=== PATIENT | female | born 1945 | race Caucasian/White ===

== ENCOUNTER → 2016-12-29 | Outpatient (CLI) | payer OTHER ==
[~2016-12-29] MED LIST: ACET-1138 PEG; ALEN70TA4 PO; CALCTAB5 PO; CHOLTAB3 PO; CLL250 PO; CRAN500C2 PO; CZR50 PO; HYDR0.5T PO; METO2.5T PO; OMEG10007 PO; PRED-301 PO; PRLSR20 PO; SERT25TA PO
[2016-12-29 09:41] LABS: BASO ABS # 0.04 K/uL (0-0.2); COMPLETE YES; EOS % 1.3 %; HEMATOCRIT 35.1 % (37-47); IG% 0.3 %; LYMPH % 21.7 %; LYMPH ABS # 0.86 K/uL (1.2-3.4); MEAN CELL VOLUME 99.4 fL (80-100); MEAN CORPUSCULAR HEMOGLOBIN 32.3 pg (25-34); MEAN CORPUSCULAR HGB CONC 32.5 g/dl (32-36); MEAN PLATELET VOLUME 9.9 fL (7.4-10.4); MONO % 14.9 %; NEUT % 60.8 %; PLATELET COUNT 230 K/uL (130-400); RED BLOOD COUNT 3.53 M/uL (4.2-5.4); WHITE BLOOD COUNT 3.97 K/uL (4.8-10.8)
[2016-12-29 09:58] LABS: URINE APPEARANCE CLOUDY (CLEAR); URINE BILIRUBIN NEG (NEG); URINE COLOR YELLOW; URINE EPITHELIAL CELL AUTO 0-5 /lpf (0-5); URINE NITRITE NEG (NEG); URINE PH 5.5 (4.5-7.5); URINE SPECIFIC GRAVITY 1.017 (1.000-1.030); UROBILINOGEN NEG (NEG)
[2016-12-29 09:59] LABS: BLOOD UREA NITROGEN 29 mg/dl (7-18); BUN/CREATININE RATIO 26.7 (10-20); C-REACTIVE PROTEIN < 0.29 mg/dl (0-0.29); CALCIUM 8.7 mg/dl (8.5-10.1); CARBON DIOXIDE 25 mmol/L (21-32); CHLORIDE 103 mmol/L (98-107); CHOLESTEROL 212 mg/dl (0-200); GLUCOSE 81 mg/dl (70-99); POTASSIUM 3.6 mmol/L (3.5-5.1); SODIUM 138 mmol/L (136-145)
[2016-12-29 10:04] LABS: MANUAL MICROSCOPIC REQUIRED? NO; REVIEW REQ? NO
[2016-12-29 10:09] LABS: CHOLESTEROL/HDL RATIO 2.5; HDL CHOLESTEROL 84 mg/dl; LDL CHOLESTEROL CALCULATED 109 mg/dl; TRIGLYCERIDES 96 mg/dl (0-150); VERY LOW DENSITY LIPOPROT CALC 19 mg/dl
[2016-12-29 10:13] LABS: URINE PROTIEN/CREAT RATIO 0.3 (0-0.2); URINE TOTAL PROTEIN 39.2 mg/dl (0-11.9)
[2017-01-01 23:30] LABS: DRVVT MIX INTERPRETAION Not Indicated; LAC PTT SCREEN 32 sec (<=40)
== END | disposition home or self-care (01) ==
LOC: C.LAB1850 07:55
PROVIDERS: ATTEND Internal Medicine
DX: I10 Essential (primary) hypertension (principal)

== ENCOUNTER → 2017-07-05 | Outpatient (CLI) | payer OTHER ==
[2017-07-05 09:37] LABS: BASO % 1.1 %; BASO ABS # 0.05 K/uL (0-0.2); COMPLETE YES; EOS % 1.8 %; HEMATOCRIT 33.6 % (37-47); IG% 0.5 %; LYMPH % 24.8 %; LYMPH ABS # 1.09 K/uL (1.2-3.4); MEAN CELL VOLUME 100.3 fL (80-100); MEAN CORPUSCULAR HEMOGLOBIN 32.2 pg (25-34); MEAN CORPUSCULAR HGB CONC 32.1 g/dl (32-36); MEAN PLATELET VOLUME 9.6 fL (7.4-10.4); MONO % 13.7 %; NEUT % 58.1 %; PLATELET COUNT 242 K/uL (130-400); RED BLOOD COUNT 3.35 M/uL (4.2-5.4); WHITE BLOOD COUNT 4.39 K/uL (4.8-10.8)
[2017-07-05 09:49] LABS: ALT/SGPT 20 U/L (12-78); AST/SGOT 21 U/L (15-37); BLOOD UREA NITROGEN 27 mg/dl (7-18); BUN/CREATININE RATIO 24.4 (10-20); CALCIUM 8.8 mg/dl (8.5-10.1); CARBON DIOXIDE 28 mmol/L (21-32); CHLORIDE 103 mmol/L (98-107); GLUCOSE 81 mg/dl (70-99); HDL CHOLESTEROL 75 mg/dl; POTASSIUM 3.9 mmol/L (3.5-5.1); SODIUM 136 mmol/L (136-145)
[2017-07-05 09:51] LABS: CHOLESTEROL 219 mg/dl (0-200); CHOLESTEROL/HDL RATIO 2.9; LDL CHOLESTEROL CALCULATED 124 mg/dl; TRIGLYCERIDES 100 mg/dl (0-150); VERY LOW DENSITY LIPOPROT CALC 20 mg/dl
[2017-07-05 09:56] LABS: ESTIMATED AVERAGE GLUCOSE 120 mg/dl; HA1C FLAG Normal (Normal)
[2017-07-10 12:25] LABS: ANTI SS DNA TC 14857X <69 U/mL (<230)
== END | disposition home or self-care (01) ==
LOC: C.LAB1850 08:03
PROVIDERS: ATTEND Physician Assistant
DX: N28.9 Disorder of kidney and ureter, unspecified (principal); R73.9 Hyperglycemia, unspecified; M32.14 Glomerular disease in systemic lupus erythematosus

== ENCOUNTER → 2017-08-29 | Outpatient (CLI) | payer OTHER ==
--- NOTE | 2017-08-30 07:46 | MAMMOGRAPHY REPORT ---
BILATERAL DIGITAL SCREENING MAMMOGRAM TOMOSYNTHESIS WITH CAD: 08/29/2017 CLINICAL HISTORY: Routine screening. Patient has no complaints. TECHNIQUE: Breast tomosynthesis in addition to standard 2D mammography was performed. Current study was also evaluated with a Computer Aided Detection (CAD) system. COMPARISON: Comparison is made to exams dated: 08/24/2016 mammogram, 08/20/2015 mammogram, and 05/13/20 13 mammogram - [facility]. BREAST COMPOSITION: The tissue of both breasts is heterogeneously dense, which may obscure small mas ses. FINDINGS: There are mild vascular calcifications in the breasts. No suspicious mass, architectural d istortion or cluster of suspicious microcalcifications is seen. IMPRESSION: ACR BI-RADS CATEGORY 1: NEGATIVE There is no mammographic evidence of malignancy. A 1 year screening mammogram is recommended. The pa tient will receive written notification of the results. Approximately 10% of breast cancers are not detected with mammography. A negative mammographic report should not delay biopsy if a clinically suggestive mass is present. Akiko Smith M.D. ay/:08/29/2017 12:50:27 Polymer Chemist: Sybil MCLAUGHLIN(R)(M), [facility] letter sent: Normal 1/2 BI-RADS Code: ACR BI-RADS Category 1: Negative
== END | disposition home or self-care (01) ==
LOC: C.MAMM 09:57
PROVIDERS: ATTEND Internal Medicine
DX: Z12.31 Encounter for screening mammogram for malignant neoplasm of breast (principal)

== ENCOUNTER 2017-11-30 11:28 | Inpatient (IN) | payer OTHER ==
[~2017-11-30] VITALS: Ht 157.5 cm; Wt 50.8 kg
[2017-11-30] MEDS ORDERED: SODIUM CHLORIDE 0.9% 1000ML 2,000 ML IV STA (12:42)
[2017-11-30] MEDS ORDERED: ALBUT/IPRATROP 3MG/0.5MG NEB 3 ML VIAL INH STA (12:42)
[2017-11-30] MEDS ORDERED: ACETAMINOPHEN 500 MG TAB PO STA (12:42)
[2017-11-30] MEDS ORDERED: ONDANSETRON 4MG OD TAB PO ONE (12:45)
--- NOTE | 2017-11-30 12:47 | EMERGENCY ROOM VISIT NOTE ---
History Report prepared by Palomo: Vinicio Jimenez Under the Supervision of: Dr. Ruben Arana M.D. First contact with patient: 12:34 Chief Complaint: FLU LIKE SX Stated Complaint: FLU, DEHYDRATION History of Present Illness The patient is a 72 year old female who presents to the Emergency Room of cough. Patient with flu like illness for the last 2 weeks. Initially improving but then last few days symptoms worsening. Associated fevers, chills , cough, nausea, vomiting, and rhinorrhea. Denies COPD/asthma but has had some wheezing. No abx recently. Nothing makes better nor worse. No syncope, chest pain, headache, neck pain/stiffness, leg swelling, rashes. Seen at urgent care and sent here for evaluation. Source of History: patient Onset: 2 weeks ago Position: other (global) Timing: constant Associated Symptoms: + fevers, + cough, + nausea, + vomiting, + diarrhea Note: Pt denies rhinorrhea. Review of Systems See HPI for pertinent positives & negatives. A total of 10 systems reviewed and were otherwise negative. Past Medical & Surgical Medical Problems: (1) Asthma (2) COPD (chronic obstructive pulmonary disease) (3) Diarrhea (4) Dislocation of hip joint prosthesis (5) Hypertension Nos (6) Lupus Erythematosus (7) Right lower lobe pneumonia Surgical Problems: (1) History of cholecystectomy (2) History of hysterectomy (3) Post-operative state Family History Cancer Lung disease Social History Smoking Status: Never Smoker Alcohol Use: none Housing Status: lives alone Occupation Status: retired Current/Historical Medications Scheduled Alendronate Sodium (Fosamax), 70 MG PO WK Calcium Carbonate-Cholecalcife (Caltrate 600+D), 1 TAB PO DAILY Hydroxychloroquine Sulfate (Plaquenil), 200 MG PO BID Losartan Potassium (Cozaar), 100 MG PO DAILY Metolazone (Zaroxolyn), 2.5 MG PO DAILY Multivitamin (Multivitamin), 1 TAB PO DAILY Mycophenolate Mofetil (Mycophenolate Mofetil), 500 MG PO BID Omeprazole (Prilosec), 20 MG PO BID Prednisone (Prednisone), 5 MG PO DAILY Sertraline (Zoloft), 25 MG PO DAILY Allergies Coded Allergies: Furosemide (Verified Allergy, Unknown, 05/08/16) Sulfamethoxazole (Verified Allergy, Unknown, 05/08/16) Physical Exam Vital Signs Date Time Temp Pulse Resp B/P (MAP) Pulse Ox O2 Delivery O2 Flow Rate FiO2 11/30/17 14:18 110 20 117/65 94 11/30/17 13:12 108 20 131/73 11/30/17 13:08 111 11/30/17 11:43 38.3 80 18 117/68 97 Room Air Physical Exam GENERAL: Patient is mildly uncomfortable appearing and in no acute distress. HEENT: No acute trauma, normocephalic atraumatic, mucous membranes dry, no nasal congestion, no scleral icterus. Copious rhinorrhea with irritation of nares bilaterally. NECK: No stridor, no adenopathy, no meningismus, trachea is midline. LUNGS: No dyspnea. Clear to auscultation and equal bilaterally. Diffuse wheezing with junky cough, no rhonchi. HEART: Tachycardia and rhythm. No murmurs, rubs, gallops appreciated. ABDOMEN: Soft, nontender, bowel sounds positive, no masses appreciated, no peritonitis. BACK: No midline tenderness, no CVA tenderness EXTREMITIES: Normal motion all extremities, no cyanosis, no edema. NEUROLOGIC: Alert and oriented, no acute motor or sensory deficits, no focal weakness, cranial nerves grossly intact. SKIN: No rash, no jaundice, no diaphoresis. Medical Decision & Procedures ER Provider Diagnostic Interpretation: Radiology results and stated below per my review and radiologist interpretation: CHEST ONE VIEW PORTABLE HISTORY: cough, fever COMPARISON: Chest 05/08/2016. FINDINGS: Rotated study. Right upper lobe opacity is likely due to the overlapping ribs. Mild diffuse interstitial thickening, unchanged. Right basilar linear densities suggesting subsegmental atelectasis. The heart remains mildly enlarged. No pleural effusions. No pneumothorax. IMPRESSION: 1. Rotated study. 2. Right basilar linear densities likely represent subsegmental atelectasis. 3. Stable mild interstitial thickening and mild cardiomegaly. Electronically signed by: Keaton Payne M.D. 11/30/2017 1:20 PM Dictated Date/Time: 11/30/2017 1:19 PM Laboratory Results 11/30/17 13:00 Red Blood Count 3.08, Mean Corpuscular Volume 96.8, Mean Corpuscular Hemoglobin 32.5, Mean Corpuscular Hemoglobin Concent 33.6, Mean Platelet Volume 9.2, Neutrophils (%) (Auto) 90.6, Lymphocytes (%) (Auto) 3.9, Monocytes (%) (Auto) 4.9, Eosinophils (%) (Auto) 0.0, Basophils (%) (Auto) 0.1, Neutrophils # (Auto) 18.27, Lymphocytes # (Auto) 0.78, Monocytes # (Auto) 0.99, Eosinophils # (Auto) 0.00, Basophils # (Auto) 0.02 11/30/17 13:00 Test 11/30/17 13:00 11/30/17 13:11 11/30/17 13:25 White Blood Count 20.16 K/uL (4.8-10.8) Red Blood Count 3.08 M/uL (4.2-5.4) Hemoglobin 10.0 g/dL (12.0-16.0) Hematocrit 29.8 % (37-47) Mean Corpuscular Volume 96.8 fL (80-100) Mean Corpuscular Hemoglobin 32.5 pg (25-34) Mean Corpuscular Hemoglobin Concent 33.6 g/dl (32-36) Platelet Count 363 K/uL (130-400) Mean Platelet Volume 9.2 fL (7.4-10.4) Neutrophils (%) (Auto) 90.6 % Lymphocytes (%) (Auto) 3.9 % Monocytes (%) (Auto) 4.9 % Eosinophils (%) (Auto) 0.0 % Basophils (%) (Auto) 0.1 % Neutrophils # (Auto) 18.27 K/uL (1.4-6.5) Lymphocytes # (Auto) 0.78 K/uL (1.2-3.4) Monocytes # (Auto) 0.99 K/uL (0.11-0.59) Eosinophils # (Auto) 0.00 K/uL (0-0.5) Basophils # (Auto) 0.02 K/uL (0-0.2) RDW Standard Deviation 45.0 fL (36.4-46.3) RDW Coefficient of Variation 12.9 % (11.5-14.5) Immature Granulocyte % (Auto) 0.5 % Immature Granulocyte # (Auto) 0.10 K/uL (0.00-0.02) Anion Gap 9.0 mmol/L (3-11) Est Creatinine Clear Calc Drug Dose 23.2 ml/min Estimated GFR () 33.8 Estimated GFR (Non- 29.2 BUN/Creatinine Ratio 29.5 (10-20) Calcium Level 9.1 mg/dl (8.5-10.1) Bedside Lactic Acid Venous 1.31 mmol/L (0.90-1.70) Influenza Type A Antigen Neg for Influ A (NEG) Influenza Type B Antigen Neg for Influ B (NEG) Laboratory results as reviewed by me. Medications Administered Medications (Trade) Dose Ordered Sig/Alon Route Start Time Stop Time Status Last Admin Dose Admin Albuterol/ Ipratropium (Duoneb) 3 ml NOW STAT INH 11/30/17 12:42 11/30/17 12:46 DC 11/30/17 13:02 3 ML Sodium Chloride 2,000 ml @ 999 mls/hr Q2H1M STAT IV 11/30/17 12:42 11/30/17 14:42 DC 11/30/17 12:42 999 MLS/HR Ondansetron HCl (Zofran Odt) 4 mg ONE ONCE PO 11/30/17 12:45 11/30/17 12:46 DC 11/30/17 13:01 4 MG Acetaminophen (Tylenol Tab) 1,000 mg NOW STAT PO 11/30/17 12:42 11/30/17 12:46 DC 11/30/17 13:02 1,000 MG Sodium Chloride 1,000 ml @ 999 mls/hr Q1H1M STAT IV 11/30/17 13:37 11/30/17 14:37 DC 11/30/17 13:52 999 MLS/HR Levofloxacin (Levaquin / D5W) 750 mg NOW STAT IV 11/30/17 13:51 11/30/17 13:52 DC 11/30/17 14:17 750 MG ECG Indication: other (flu like symptoms) Rate (beats per minute): 110 Rhythm: sinus tachycardia Findings: RBBB, other (QTC of 160; PAC's) Change: EKG interpreted by me. ED Course 1234: The patient was evaluated in room A9. A complete history and physical exam was performed. 1336: I checked on the patient and she still has junky rales. The heart rate jumped to 120. 1338:I ordered an EKG 1400: The patient verbally expressed understanding and agreement of the treatment plan. The patient will be evaluated for further treatment. Medical Decision Differential: Viral, Pharyngitis, Cellulitis, Pneumonia, Influenza, Meningitis, Sepsis, Bacteremia, UTI/Pyelonephritis, Endocrine, Toxicologic, amongst other pathologies entertained. 72 yr old female with flu like illness starting 2 weeks ago, which worsening last 2 days with shob, cough fevers, sent over by urgent care for evaluation. PNA by lung exam with fever, tachycardia. Not hypotensive nor elevated lactic acid. She does appear significantly dehydrated which goes with tachycardia, elevated Cr. WBC is 20 and in setting of fevers/tachycardia and pna this is consistent with sepsis. CXR with questionable RLL findings which I suspect with dehydration is just not blossomed yet. She is not in septic shock but was given significant fluid bolus for amount of dehydration. She was given IV Levaquin for pneumonia coverage. Patient feeling better with above but I feel with findings she will need to come in for close monitoring/treatment. Medication Reconcilliation Current Medication List: was personally reviewed by me Blood Pressure Screening Patient's blood pressure: Normal blood pressure Blood pressure disposition: Did not require urgent referral Impression Primary Impression: Pneumonia Additional Impression: Sepsis Scribe Attestation The scribe's documentation has been prepared under my direction and personally reviewed by me in its entirety. I confirm that the note above accurately reflects all work, treatment, procedures, and medical decision making performed by me. Departure Information Referrals Carson Almazan M.D. (PCP) Patient Instructions [facility] Problem Qualifiers
[2017-11-30 13:16] LABS: BASO % 0.1 %; BASO ABS # 0.02 K/uL (0-0.2); HEMATOCRIT 29.8 % (37-47); LYMPH % 3.9 %; LYMPH ABS # 0.78 K/uL (1.2-3.4); MEAN CELL VOLUME 96.8 fL (80-100); MEAN CORPUSCULAR HEMOGLOBIN 32.5 pg (25-34); MEAN CORPUSCULAR HGB CONC 33.6 g/dl (32-36); MEAN PLATELET VOLUME 9.2 fL (7.4-10.4); MONO % 4.9 %; MONO ABS # 0.99 K/uL (0.11-0.59); NEUT % 90.6 %; NEUT ABS # 18.27 K/uL (1.4-6.5); PLATELET COUNT 363 K/uL (130-400); RED CELL DISTRIBUTION WIDTH CV 12.9 % (11.5-14.5); WHITE BLOOD COUNT 20.16 K/uL (4.8-10.8)
--- NOTE | 2017-11-30 13:21 | DIAGNOSTIC IMAGING REPORT ---
CHEST ONE VIEW PORTABLE HISTORY: cough, fever COMPARISON: Chest 05/08/2016. FINDINGS: Rotated study. Right upper lobe opacity is likely due to the overlapping ribs. Mild diffuse interstitial thickening, unchanged. Right basilar linear densities suggesting subsegmental atelectasis. The heart remains mildly enlarged. No pleural effusions. No pneumothorax. IMPRESSION: 1. Rotated study. 2. Right basilar linear densities likely represent subsegmental atelectasis. 3. Stable mild interstitial thickening and mild cardiomegaly. Electronically signed by: Keaton Payne M.D. 11/30/2017 1:20 PM Dictated Date/Time: 11/30/2017 1:19 PM
[2017-11-30 13:33] LABS: CALCIUM 9.1 mg/dl (8.5-10.1); CREATININE 1.71 mg/dl (0.60-1.20); POTASSIUM 3.4 mmol/L (3.5-5.1)
[2017-11-30] MEDS ORDERED: SODIUM CHLORIDE 0.9% 1000ML 1,000 ML IV STA (13:37)
[2017-11-30] MEDS ORDERED: MULT-506 PO (13:47)
[2017-11-30] MEDS ORDERED: LOSA1TAB38 PO (13:47)
[2017-11-30] MEDS ORDERED: CALC-354 PO (13:47)
[2017-11-30] MEDS ORDERED: MYCO500T5 PO (13:47)
[2017-11-30] MEDS ORDERED: HYDR200T5 PO (13:47)
[2017-11-30] MEDS ORDERED: LEVAQUIN 750MG / 150ML D5W IV STA (13:51)
[2017-11-30 14:10] LABS: INFLUENZA B ANTIGEN Neg for Influ B (NEG)
[2017-11-30] MEDS ORDERED: LEVOFLOXACIN / D5W 750 MG in PREMIXED IN D5W 150 ML IV SCH (14:45)
[2017-11-30] MEDS ORDERED: POLYETHYLENE (MIRALAX) 17 GM PACK PO PRN (14:45)
[2017-11-30] MEDS ORDERED: ONDANSETRON INJ 2 MG/ML 2 ML VIAL IV PRN (14:45)
[2017-11-30] MEDS ORDERED: DIPHENOXYLATE/ATROPINE 2.5/0.025MG TAB PO PRN (15:00)
--- NOTE | 2017-11-30 15:03 | History and Physical ---
History & Physical Date & Time of Service: Nov 30, 2017 at 14:17 Chief Complaint: Flu, Dehydration Primary Care Physician: Carson Almazan M.D. History of Present Illness A 72-year-old female with PMHx of lupus erythematosus, HTN, COPD, asthma, limited remote smoking history about 10 years ago for 2 years. She presents with generalized ill feeling of approximately 2 weeks to the ER. She reports initially feeling like she had a head cold with cough, runny nose, chest congestion, muscle aches and pains, which then developed into GI issues. She has been dealing with nausea, vomiting, and diarrhea 1 week. This morning the patient was unable to keep any fluids or medications down. She reports feeling generalized weakness, and had a fever of 38.3 here in the ER along with WBC = 20 K. The patient received a breathing treatment due to shortness of breath she feels better at this time. 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 Patient is tachycardic with a heart rate of 108, Tmax= 38.3 White blood count equal 20 K, creatinine 1.71 which is elevated from 1.1 at baseline Chest x-ray reviewed, breath sounds with faint crackles worse in the RLL along with wheezing. Past Medical/Surgical History Medical Problems: (1) Asthma (2) COPD (chronic obstructive pulmonary disease) (3) Diarrhea (4) Dislocation of hip joint prosthesis (5) Hypertension Nos (6) Lupus Erythematosus (7) Right lower lobe pneumonia Surgical Problems: (1) History of cholecystectomy (2) History of hysterectomy (3) Post-operative state Family History Cancer Lung disease Social History Smoking Status: Former Smoker Smokeless Tobacco Use: No Alcohol Use: occasionally Drug Use: none Marital Status: Housing status: lives alone Occupational Status: employed Immunizations History of Influenza Vaccine: No Influenza Vaccine Date: Sep 10, 2008 History of Tetanus Vaccine?: Yes Tetanus Immunization Date: Mar 11, 2008 History of Pneumococcal: Yes Pneumococcal Date: Mar 11, 2008 History of Hepatitis B Vaccine: Unknown Hepatitis Immunization Date: Mar 11, 2007 Multi-Drug Resistant Organisms History of MDRO: No Allergies Coded Allergies: Furosemide (Verified Allergy, Unknown, 05/08/16) Sulfamethoxazole (Verified Allergy, Unknown, 05/08/16) Home Medications Scheduled Alendronate Sodium (Fosamax), 70 MG PO WK Calcium Carbonate-Cholecalcife (Caltrate 600+D), 1 TAB PO DAILY Hydroxychloroquine Sulfate (Plaquenil), 200 MG PO BID Losartan Potassium (Cozaar), 100 MG PO DAILY Metolazone (Zaroxolyn), 2.5 MG PO DAILY Multivitamin (Multivitamin), 1 TAB PO DAILY Mycophenolate Mofetil (Mycophenolate Mofetil), 500 MG PO BID Omeprazole (Prilosec), 20 MG PO BID Prednisone (Prednisone), 5 MG PO DAILY Sertraline (Zoloft), 25 MG PO DAILY Review of Systems Constitutional: + fever, no sweats or chills Eyes: No diplopia, no worsening or blurred vision ENT: normal hearing, no trouble swallowing Respiratory: + occasional cough, no sputum, dyspnea at rest or on exertion Cardiovascular: No chest pain, tightness or palpitations Abdomen: See history of present illness Musculoskeletal: No joint pain, calf pain, swelling Neurologic: No weakness, numbness/tingling, or balance problems Psychiatric: No anxiety or depression Skin: No rash or itch Physical Exam Vital Signs Date Time Temp Pulse Resp B/P (MAP) Pulse Ox O2 Delivery O2 Flow Rate FiO2 11/30/17 13:12 108 20 131/73 11/30/17 13:08 111 11/30/17 11:43 38.3 80 18 117/68 97 Room Air General: awake, alert, no apparent distress, thin Head: Normocephalic, atraumatic ENT: PERRL, EOMI, no pharyngeal exudate, mucous membranes dry Chest: On RA, + barrel chest, + inspiratory and expiratory wheeze worse in the right base, faint crackles in the right base and RML, otherwise clear Cardiac: Tachycardic, systolic murmur, +JVD, normal peripheral pulses, good capillary refill Abdominal: NABS x 4 quadrants, soft, generalized tenderness to palpation, no rebound, guarding or tenderness Extremities: Normal inspection, no peripheral edema or erythema, calfs nontender to palpation Psych: Normal mood and affect Neuro: AAO x 3, strength intact bilaterally and related 5/5, no motor deficits, speech is clear, no peripheral sensory deficits Diagnostics Laboratory Results Results Past 24 Hours Test 11/30/17 13:00 11/30/17 13:11 11/30/17 13:25 Range/Units White Blood Count 20.16 4.8-10.8 K/uL Red Blood Count 3.08 4.2-5.4 M/uL Hemoglobin 10.0 12.0-16.0 g/dL Hematocrit 29.8 37-47 % Mean Corpuscular Volume 96.8 80-100 fL Mean Corpuscular Hemoglobin 32.5 25-34 pg Mean Corpuscular Hemoglobin Concent 33.6 32-36 g/dl Platelet Count 363 130-400 K/uL Mean Platelet Volume 9.2 7.4-10.4 fL Neutrophils (%) (Auto) 90.6 % Lymphocytes (%) (Auto) 3.9 % Monocytes (%) (Auto) 4.9 % Eosinophils (%) (Auto) 0.0 % Basophils (%) (Auto) 0.1 % Neutrophils # (Auto) 18.27 1.4-6.5 K/uL Lymphocytes # (Auto) 0.78 1.2-3.4 K/uL Monocytes # (Auto) 0.99 0.11-0.59 K/uL Eosinophils # (Auto) 0.00 0-0.5 K/uL Basophils # (Auto) 0.02 0-0.2 K/uL RDW Standard Deviation 45.0 36.4-46.3 fL RDW Coefficient of Variation 12.9 11.5-14.5 % Immature Granulocyte % (Auto) 0.5 % Immature Granulocyte # (Auto) 0.10 0.00-0.02 K/uL Sodium Level 132 136-145 mmol/L Potassium Level 3.4 3.5-5.1 mmol/L Chloride Level 101 98-107 mmol/L Carbon Dioxide Level 22 21-32 mmol/L Anion Gap 9.0 3-11 mmol/L Blood Urea Nitrogen 51 7-18 mg/dl Creatinine 1.71 0.60-1.20 mg/dl Est Creatinine Clear Calc Drug Dose 23.2 ml/min Estimated GFR () 33.8 Estimated GFR (Non- 29.2 BUN/Creatinine Ratio 29.5 10-20 Random Glucose 105 70-99 mg/dl Calcium Level 9.1 8.5-10.1 mg/dl Bedside Lactic Acid Venous 1.31 0.90-1.70 mmol/L Influenza Type A Antigen Neg for Influ A NEG Influenza Type B Antigen Neg for Influ B NEG Microbiology Results 11/30/17 Blood Culture, Received Pending 11/30/17 Blood Culture, Received Pending Diagnostic Radiology [~ rep ct add3]] CHEST ONE VIEW PORTABLE HISTORY: cough, fever COMPARISON: Chest 05/08/2016. FINDINGS: Rotated study. Right upper lobe opacity is likely due to the overlapping ribs. Mild diffuse interstitial thickening, unchanged. Right basilar linear densities suggesting subsegmental atelectasis. The heart remains mildly enlarged. No pleural effusions. No pneumothorax. IMPRESSION: 1. Rotated study. 2. Right basilar linear densities likely represent subsegmental atelectasis. 3. Stable mild interstitial thickening and mild cardiomegaly. Electronically signed by: Keaton Payne M.D. 11/30/2017 1:20 PM Dictated Date/Time: 11/30/2017 1:19 PM The status of this report is Signed. EKG Sinus tachycardia with Premature atrial complexes Otherwise normal ECG When compared with ECG of 08-MAY-2016 15:02, Premature atrial complexes are now Present Vent. rate 110 BPM OR interval 200 ms QRS duration 106 ms QT/QTc 340/460 ms P-R-T axes 48 52 23 Impression Assessment and Plan A 72-year-old female with PMHx of lupus erythematosus, HTN, COPD, asthma, limited remote smoking history about 10 years ago for 2 years. She presents with generalized ill feeling of approximately 2 weeks to the ER. She reports initially feeling like she had a head cold with cough, runny nose, chest congestion, muscle aches and pains, which then developed into GI issues of nausea, vomiting, and diarrhea 1 week. RLL Pneumonia in setting of recent URI Hx COPD Remote smoking hx 10 yrs ago - Admit to med/surg - Fever of 38.3 here in the ER along with WBC = 20 K. Lactic acid POC was 1.3, will repeat lactic again now. - Started on Levaquin in the ER- continue - Continue Xopenex nebulizers due to tachycardia, other pulmonary toilet with incentive spirometry, flutter, Mucinex - Patient does not wear O2 at baseline - CXR reviewed, + wheeze and crackles on exam LICHA on CKD stage II - Due to dehydration from poor PO intake and diarrhea - can use immodium for supportive care. Pt without hx of antibiotic use or hospitalization so likelihood of C.diff very low. - Patient creatinine 1.71 up from baseline of 1.1 - Continue NSS + KCL at 150 mL hr x 12 hours, follow PRP HTN - Continue Cozaar 100 mg daily, metalazone, will administer dose now as she did not take her morning medications Lupus erythematosus - Patient is on prednisone 5 mg daily chronically, Plaquenil 200 milligrams daily Depression -Continue sertraline 25 mg daily DVT ppx: Teds, scds, heparin subq CODE STATUS: DNR Disposition: From home, lives alone, PT/OT to [facility]. RENITA Physician Supervision Note: I interviewed and examined the patient. Discussed with Sabra Batista PAC and agree with findings and plan as documented in the note. Any exceptions or clarifications are listed here: None Patiently with concern for sepsis from pulmonary source she has fever tachycardia leukocytosis and right lower lobe infiltrate. The patient does not have any issues consistent with aspiration. She has also acute renal failure with a history of lupus nephritis Vital signs show as mentioned in temperature and tachycardia her O2 sat is been sustained Chest exam shows bibasilar reduction in breath sounds right worse than left with some rhonchi on the right cardiac exam is tachycardic abdomen exam is normal active bowel sounds and soft Pneumonia in a patient with some immunosuppression due to her rheumatological diagnoses underlying history of COPD. The patient was started on Levaquin agree with this is the patient may be more susceptible to gram-negative organisms given her underlying lung disease and immune system suppression will continue levofloxacin but if clinically not improving may consider adding additional gram-negative coverage or even anaerobic coverage as this is a right lower lobe area it is hopeful that the tachycardia will improve with hydration and antipyretics therapy and is also hopeful her acute kidney injury will improve with hydration Documented By: Jayant Osorio Level of Care Med/Surg Advanced Directives Existing Advance Directive: Yes Existing Living Will: Yes Existing Power of Polysomnography Technician: Yes Existing Health Care Proxy: Yes Resuscitation Status DO NOT RESUSCITATE VTE Prophylaxis VTE Risk Assessment Done? Y/N: Yes Risk Level: Low Given or contraindicated: Unfractionated heparin SQ, T.E.D. Stockings, SCD's
[2017-11-30 17:12] LABS: INR 1.1 (0.9-1.1); PTT PATIENT 37.8 SECONDS (21.0-31.0)
[2017-11-30] MEDS: LOSARTAN POTASSIUM 50 MG TAB PO SCH (17:57)
[2017-11-30] MEDS: NSS + 20MEQ KCL 1000ML 1,000 ML IV SCH (17:57)
[2017-11-30 18:09] VITALS: BP 108/62; PULSE 101; TEMP 37.5; O2SAT 95; Ht 157.5 cm; Wt 50.8 kg
[2017-11-30] MEDS: ACETAMINOPHEN 325 MG TAB PO PRN (19:39)
[2017-11-30] MEDS: HYDROXYCHLOROQUINE SULFATE 200 MG TAB PO SCH (20:33)
[2017-11-30] MEDS: HEPARIN SOD 5000 UNIT/0.5 ML CARP SQ SCH (20:34)
[2017-11-30] MEDS: GUAIFENESIN 600 MG TABCR PO SCH (20:36)
[2017-11-30] MEDS: LEVALBUTEROL 1.25MG/3ML NEB INH SCH ×2 (21:10→21:19)
[2017-11-30 21:14] VITALS: PULSE 89; O2SAT 96
[2017-11-30 23:21] VITALS: BP 94/54; PULSE 87; TEMP 37; O2SAT 94
[2017-12-01] VITALS (9 sets, daily range): BP systolic 110–130; BP diastolic 68; PULSE 74–101; TEMP 37.2–37.8; O2SAT 94–97
[2017-12-01] MEDS: NSS + 20MEQ KCL 1000ML 1,000 ML IV SCH (01:21)
[2017-12-01] MEDS: LEVALBUTEROL 1.25MG/3ML NEB INH SCH ×5 (01:42→20:20)
[2017-12-01] MEDS: HEPARIN SOD 5000 UNIT/0.5 ML CARP SQ SCH ×3 (05:37→20:58)
[2017-12-01] MEDS: DEXTROMETHORPHAN POLYMR COMPLX 30 MG/5 ML UDP PO PRN ×2 (07:19→15:45)
[2017-12-01 07:43] LABS: HEMATOCRIT 24.8 % (37-47); HEMOGLOBIN 8.2 g/dL (12.0-16.0); MEAN CORPUSCULAR HEMOGLOBIN 32.4 pg (25-34); MEAN CORPUSCULAR HGB CONC 33.1 g/dl (32-36); MEAN PLATELET VOLUME 8.9 fL (7.4-10.4); PLATELET COUNT 295 K/uL (130-400); RED CELL DISTRIBUTION WIDTH CV 13.1 % (11.5-14.5); RED CELL DISTRIBUTION WIDTH SD 47.1 fL (36.4-46.3)
[2017-12-01] MEDS: GUAIFENESIN 600 MG TABCR PO SCH ×2 (08:04→20:57)
[2017-12-01] MEDS: SERTRALINE HCL 50 MG TAB PO SCH (08:05)
[2017-12-01] MEDS: LOSARTAN POTASSIUM 50 MG TAB PO SCH (08:06)
[2017-12-01] MEDS: METOLAZONE 2.5 MG TAB PO SCH (08:06)
[2017-12-01] MEDS: PANTOprazole SOD 40 MG TAB PO SCH (08:07)
[2017-12-01] MEDS: HYDROXYCHLOROQUINE SULFATE 200 MG TAB PO SCH ×2 (08:07→20:57)
[2017-12-01] MEDS: CALCIUM 600MG + VIT D 400 IU TAB PO SCH (08:07)
[2017-12-01] MEDS: MULTIVITAMIN TAB PO SCH (08:07)
[2017-12-01 08:19] LABS: CREATININE 1.01 mg/dl (0.60-1.20); POTASSIUM 3.6 mmol/L (3.5-5.1)
[2017-12-01 08:20] LABS: BASO % 0.1 %; BASO ABS # 0.01 K/uL (0-0.2); IG# 0.06 K/uL (0.00-0.02); LYMPH % 2.5 %; LYMPH ABS # 0.38 K/uL (1.2-3.4); MONO % 7.9 %; MONO ABS # 1.21 K/uL (0.11-0.59); NEUT % 89.1 %; NEUT ABS # 13.74 K/uL (1.4-6.5)
--- NOTE | 2017-12-01 15:28 | Progress Note ---
Subjective Date of Service: Dec 01, 2017. Subjective Pt evaluation today including: conversation w/ patient, physical exam, chart review, lab review, review of studies, review of inpatient medication list Sitting up in chair, feeling better, still cough up a lot of sputum, denied fever and chill, deny postnasal drip, Problem List Medical Problems: (1) Dislocation of internal right hip prosthesis Status: Acute (2) Fall Status: Acute (3) History of failed conscious sedation Status: Acute (4) Pneumonia Status: Acute (5) Sepsis Status: Acute Review of Systems Constitutional: No fever, No chills, No sweats, No weight loss, No weakness, No fatigue, No problem reported Eyes: No worsening of vision, No eye pain, No redness, No discharge, No diplopia ENT: No hearing loss, No unusual epistaxis, No nasal symptoms, No sore throat, No tinnitus, No dental problems, No trouble swallowing Respiratory: + cough, + sputum, + wheezing, No dyspnea on exertion, No dyspnea at rest, No hemoptysis Cardiac: No chest pain, No orthopnea, No PND, No edema, No claudication, No palpitations Abdomen: No pain, No nausea, No vomiting, No diarrhea, No constipation Musculoskeletal: No joint pain, No muscle pain, No swelling, No calf pain Female : No dysuria, No urinary frequency, No hematuria, No incontinence, No abnormal vaginal bleeding, No vaginal discharge Neurologic: No memory loss, No paralysis, No weakness, No numbness/tingling, No vertigo, No balance problems Psychiatric: No depression symptoms, No anhedonism, No anxiety, No insomnia, No substance abuse Heme: No abnormal bleeding/bruising, No clotting problems, No swollen lymph nodes, No night sweats Endo: No fatigue, No excessive thirst, No excessive urination Skin: No rash, No itch, No new/changing skin lesions, No color change, No bleeding Objective Vital Signs Date Time Temp Pulse Resp B/P (MAP) Pulse Ox O2 Delivery O2 Flow Rate FiO2 12/01/17 15:15 37.2 96 20 130/68 (88) 97 Room Air 12/01/17 11:16 89 14 96 Room Air 12/01/17 08:00 94 Room Air 12/01/17 07:28 37.8 99 20 110/68 (82) 94 Room Air 12/01/17 07:04 98 14 94 Room Air 12/01/17 01:42 74 14 94 Room Air 12/01/17 00:00 Room Air 11/30/17 23:21 37.0 87 20 94/54 (67) 94 Room Air 11/30/17 21:14 89 14 96 Room Air 11/30/17 18:09 37.5 101 18 108/62 95 Room Air 11/30/17 16:00 37.7 109 18 112/61 93 11/30/17 15:29 37.7 109 18 112/61 93 Room Air Physical Exam General Appearance: WD/WN, no apparent distress, + thin, + pertinent finding ( frail,) Eyes: normal inspection, PERRL, EOMI, sclerae normal ENT: normal ENT inspection, hearing grossly normal, pharynx normal Neck: supple, no adenopathy, thyroid normal, no JVD, no carotid bruits, trachea midline Respiratory/Chest: chest non-tender, normal breath sounds, no respiratory distress, no accessory muscle use, + decreased breath sounds, + rales, + wheezing Cardiovascular: regular rate, rhythm, no edema, no gallop, no JVD, no murmur Abdomen: normal bowel sounds, non tender, soft, no organomegaly, no pulsatile mass Extremities: normal range of motion, non-tender, normal inspection, no pedal edema, no calf tenderness, normal capillary refill, pelvis stable 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, no motor/sensory deficits, alert, normal mood/affect, oriented x 3 Skin: normal color, warm/dry, no rash Lymphatic: no adenopathy Laboratory Results Last 24 Hours Test 11/30/17 16:44 12/01/17 07:14 Prothrombin Time 11.8 SECONDS Prothromb Time International Ratio 1.1 Activated Partial Thromboplast Time 37.8 SECONDS Partial Thromboplastin Ratio 1.5 Lactic Acid Level 1.5 mmol/L White Blood Count 15.40 K/uL Red Blood Count 2.53 M/uL Hemoglobin 8.2 g/dL Hematocrit 24.8 % Mean Corpuscular Volume 98.0 fL Mean Corpuscular Hemoglobin 32.4 pg Mean Corpuscular Hemoglobin Concent 33.1 g/dl Platelet Count 295 K/uL Mean Platelet Volume 8.9 fL Neutrophils (%) (Auto) 89.1 % Lymphocytes (%) (Auto) 2.5 % Monocytes (%) (Auto) 7.9 % Eosinophils (%) (Auto) 0.0 % Basophils (%) (Auto) 0.1 % Neutrophils # (Auto) 13.74 K/uL Lymphocytes # (Auto) 0.38 K/uL Monocytes # (Auto) 1.21 K/uL Eosinophils # (Auto) 0.00 K/uL Basophils # (Auto) 0.01 K/uL RDW Standard Deviation 47.1 fL RDW Coefficient of Variation 13.1 % Immature Granulocyte % (Auto) 0.4 % Immature Granulocyte # (Auto) 0.06 K/uL Anisocytosis PRESENT Schistocytes 1+ Sodium Level 139 mmol/L Potassium Level 3.6 mmol/L Chloride Level 110 mmol/L Carbon Dioxide Level 17 mmol/L Anion Gap 12.0 mmol/L Blood Urea Nitrogen 34 mg/dl Creatinine 1.01 mg/dl Est Creatinine Clear Calc Drug Dose 39.2 ml/min Estimated GFR () 64.0 Estimated GFR (Non- 55.2 BUN/Creatinine Ratio 34.1 Random Glucose 86 mg/dl Calcium Level 8.0 mg/dl Assessment and Plan A 72-year-old female admitted on 11/30/2017, with pneumonia associated with a head cold with cough, runny nose, chest congestion, muscle aches and pains for 1 week, she also reported diarrhea 1 week. Possible sepsis secondary to pneumonia RLL Pneumonia in setting of recent URI Hx COPD and Remote smoking Patient has hx of lupus, is on immunosuppressive medication now, she is possible immunocompromised Stable and improving, leukocytosis is better today Continue antibiotic Levaquin, nebulizer treatment and O2 support if needed, watch for any signs of worsening infection or sepsis Possible sepsis upon admission which is evident by fever of 38.3 here in the ER along with WBC = 20 K. Lactic acid POC was 1.3, blood culture sent LICHA on CKD stage II , creatinine 1.7 upon admission today is1, likely due to dehydration from poor PO intake and diarrhea Diarrhea recently, likely why this, can use immodium for supportive care. We' ll check a C. difficile cont IV fluid and follow PRP HTN, continue Cozaar 100 mg daily, metalazone, will administer dose now as she did not take her morning medications Lupus erythematosus, patient is on prednisone 5 mg daily chronically, Plaquenil 200 milligrams daily Depression, continue sertraline 25 mg daily DVT ppx: Teds, scds, heparin subq CODE STATUS: DNR From home, lives alone, PT/OT to eval. Continued [facility] stay due to: multiple IV medications needed Discharge planning: home, uncertain
[2017-12-01] MEDS: ACETAMINOPHEN 325 MG TAB PO PRN (20:58)
[2017-12-01] MEDS ORDERED: ZOLPIDEM TARTRATE 5 MG TAB PO ONE (21:00)
[2017-12-02] VITALS (8 sets, daily range): BP systolic 99–122; BP diastolic 56–69; PULSE 83–94; TEMP 36.8–38.9; O2SAT 94–98
[2017-12-02] MEDS: LEVALBUTEROL 1.25MG/3ML NEB INH SCH ×4 (02:18→19:36)
[2017-12-02] MEDS: HEPARIN SOD 5000 UNIT/0.5 ML CARP SQ SCH ×3 (06:00→21:32)
[2017-12-02 07:19] LABS: BASO % 0.1 %; BASO ABS # 0.02 K/uL (0-0.2); EOS % 0.1 %; EOS ABS # 0.02 K/uL (0-0.5); HEMATOCRIT 26.3 % (37-47); HEMOGLOBIN 8.7 g/dL (12.0-16.0); IG# 0.06 K/uL (0.00-0.02); LYMPH % 3.1 %; LYMPH ABS # 0.49 K/uL (1.2-3.4); MEAN CELL VOLUME 97.8 fL (80-100); MEAN CORPUSCULAR HEMOGLOBIN 32.3 pg (25-34); MEAN CORPUSCULAR HGB CONC 33.1 g/dl (32-36); MONO % 10.4 %; MONO ABS # 1.63 K/uL (0.11-0.59); NEUT % 85.9 %; NEUT ABS # 13.47 K/uL (1.4-6.5); PLATELET COUNT 300 K/uL (130-400); RED CELL DISTRIBUTION WIDTH CV 13.1 % (11.5-14.5); RED CELL DISTRIBUTION WIDTH SD 46.2 fL (36.4-46.3); WHITE BLOOD COUNT 15.69 K/uL (4.8-10.8)
[2017-12-02 07:54] LABS: CALCIUM 8.6 mg/dl (8.5-10.1); CREATININE 0.85 mg/dl (0.60-1.20); POTASSIUM 3.9 mmol/L (3.5-5.1)
[2017-12-02] MEDS: SERTRALINE HCL 50 MG TAB PO SCH (09:15)
[2017-12-02] MEDS: CALCIUM 600MG + VIT D 400 IU TAB PO SCH (09:15)
[2017-12-02] MEDS: MULTIVITAMIN TAB PO SCH (09:16)
[2017-12-02] MEDS: METOLAZONE 2.5 MG TAB PO SCH (09:16)
[2017-12-02] MEDS: GUAIFENESIN 600 MG TABCR PO SCH ×2 (09:16→20:13)
[2017-12-02] MEDS: LOSARTAN POTASSIUM 50 MG TAB PO SCH (09:16)
[2017-12-02] MEDS: PANTOprazole SOD 40 MG TAB PO SCH (09:17)
[2017-12-02] MEDS: HYDROXYCHLOROQUINE SULFATE 200 MG TAB PO SCH ×2 (09:17→20:14)
[2017-12-02] MEDS ORDERED: LEVOFLOXACIN / D5W 750 MG in PREMIXED IN D5W 150 ML IV SCH (14:00)
[2017-12-02] MEDS: ACETAMINOPHEN 325 MG TAB PO PRN (14:03)
[2017-12-02] MEDS ORDERED: PIPERACILL/TAZOBAC CONSULT ACTIVE PRN (15:30)
[2017-12-02] MEDS ORDERED: PIPERACILLIN/TAZOBACTAM 3.375 GM/100ML D5W IV STA (15:30)
--- NOTE | 2017-12-02 15:39 | Progress Note ---
Subjective Date of Service: Dec 02, 2017. Subjective Pt evaluation today including: conversation w/ patient, physical exam, chart review, lab review, review of studies, review of inpatient medication list Was spiking fever at 38.9 noon time, Currently Doing okay, was having yellow sputum today is better, and easy to cough up, deny wheezing or difficulty breathing Problem List Medical Problems: (1) Dislocation of internal right hip prosthesis Status: Acute (2) Fall Status: Acute (3) History of failed conscious sedation Status: Acute (4) Pneumonia Status: Acute (5) Sepsis Status: Acute Review of Systems Constitutional: + fever, + chills, + weakness, + fatigue Eyes: No see HPI, No worsening of vision, No eye pain, No redness, No discharge , No diplopia, No problem reported ENT: No see HPI, No hearing loss, No unusual epistaxis, No nasal symptoms, No sore throat, No tinnitus, No dental problems, No trouble swallowing, No problem reported Respiratory: + cough, + shortness of breath Cardiac: No see HPI, No chest pain, No orthopnea, No PND, No edema, No claudication, No palpitations, No problem reported Breast: No see HPI, No breast lump, No change in shape, No nipple discharge, No breast pain, No problem reported Abdomen: No see HPI, No pain, No nausea, No vomiting, No diarrhea, No constipation, No GI bleeding, No problem reported Musculoskeletal: No see HPI, No joint pain, No muscle pain, No swelling, No calf pain, No problem reported Female : No see HPI, No dysuria, No urinary frequency, No hematuria, No incontinence, No abnormal vaginal bleeding, No vaginal discharge, No problem reported Neurologic: No see HPI, No memory loss, No paralysis, No weakness, No numbness/ tingling, No vertigo, No balance problems, No problem reported Psychiatric: No see HPI, No depression symptoms, No anhedonism, No anxiety, No insomnia, No substance abuse, No problem reported Heme: No see HPI, No abnormal bleeding/bruising, No clotting problems, No swollen lymph nodes, No night sweats, No problem reported Endo: No see HPI, No fatigue, No excessive thirst, No excessive urination, No problem reported Skin: No see HPI, No rash, No itch, No new/changing skin lesions, No color change, No bleeding, No problem reported Objective Vital Signs Date Time Temp Pulse Resp B/P (MAP) Pulse Ox O2 Delivery O2 Flow Rate FiO2 12/02/17 13:27 38.9 12/02/17 08:00 Room Air 12/02/17 07:25 37.6 91 18 122/69 (86) 96 Room Air 12/02/17 07:07 90 16 96 Room Air 12/02/17 02:18 85 14 97 Room Air 12/02/17 00:16 36.8 94 18 99/56 (70) 95 Room Air 12/02/17 00:10 Room Air 12/01/17 20:20 101 14 94 Room Air 12/01/17 20:10 94 Room Air 12/01/17 16:00 Room Air 12/01/17 15:53 90 14 94 Room Air Physical Exam General Appearance: WD/WN, no apparent distress, + thin, + pertinent finding ( pleasant) Eyes: normal inspection, PERRL, EOMI, sclerae normal ENT: normal ENT inspection, hearing grossly normal, pharynx normal Neck: supple, no adenopathy, thyroid normal, no JVD, no carotid bruits, trachea midline Respiratory/Chest: chest non-tender, normal breath sounds, no respiratory distress, no accessory muscle use, + decreased breath sounds Cardiovascular: regular rate, rhythm, no edema, no gallop, no JVD, no murmur Abdomen: normal bowel sounds, non tender, soft, no organomegaly, no pulsatile mass Extremities: normal range of motion, non-tender, no pedal edema, no calf tenderness, normal capillary refill, pelvis stable, + pertinent finding (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) 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, no motor/sensory deficits, alert, normal mood/affect, oriented x 3 Skin: normal color, warm/dry, no rash Lymphatic: no adenopathy Laboratory Results Last 24 Hours Test 12/02/17 06:53 White Blood Count 15.69 K/uL Red Blood Count 2.69 M/uL Hemoglobin 8.7 g/dL Hematocrit 26.3 % Mean Corpuscular Volume 97.8 fL Mean Corpuscular Hemoglobin 32.3 pg Mean Corpuscular Hemoglobin Concent 33.1 g/dl Platelet Count 300 K/uL Mean Platelet Volume 9.0 fL Neutrophils (%) (Auto) 85.9 % Lymphocytes (%) (Auto) 3.1 % Monocytes (%) (Auto) 10.4 % Eosinophils (%) (Auto) 0.1 % Basophils (%) (Auto) 0.1 % Neutrophils # (Auto) 13.47 K/uL Lymphocytes # (Auto) 0.49 K/uL Monocytes # (Auto) 1.63 K/uL Eosinophils # (Auto) 0.02 K/uL Basophils # (Auto) 0.02 K/uL RDW Standard Deviation 46.2 fL RDW Coefficient of Variation 13.1 % Immature Granulocyte % (Auto) 0.4 % Immature Granulocyte # (Auto) 0.06 K/uL Echinocytes 2+ Sodium Level 138 mmol/L Potassium Level 3.9 mmol/L Chloride Level 107 mmol/L Carbon Dioxide Level 20 mmol/L Anion Gap 11.0 mmol/L Blood Urea Nitrogen 23 mg/dl Creatinine 0.85 mg/dl Est Creatinine Clear Calc Drug Dose 46.6 ml/min Estimated GFR () 78.8 Estimated GFR (Non- 68.0 BUN/Creatinine Ratio 27.5 Random Glucose 102 mg/dl Calcium Level 8.6 mg/dl Assessment and Plan A 72-year-old female admitted on 11/30/2017, with pneumonia associated with a head cold with cough, runny nose, chest congestion, muscle aches and pains for 1 week, she also reported diarrhea 1 week. Possible sepsis secondary to pneumonia upon admission RLL Pneumonia in setting of recent URI Spiking fever today at noontime 38.9 Hx COPD and Remote smoking Patient has hx of lupus, is on immunosuppressive medication now, she is possible immunocompromised Was on Levaquin upon admission , I will add Zosyn because of spiking fever on Levaquin, and re sent blood culture LICHA on CKD stage II , creatinine 1.7 upon admission today is 0.85 likely due to dehydration from poor PO intake and diarrhea , totally resolved Diarrhea recently, likely why this, can use immodium for supportive care. No more diarrhea, C. difficile ordered but not testing yet cont IV fluid and follow PRP HTN, continue Cozaar 100 mg daily, metalazone, will administer dose now as she did not take her morning medications Lupus erythematosus, patient is on prednisone 5 mg daily chronically, Plaquenil 200 milligrams daily Depression, continue sertraline 25 mg daily DVT ppx: Teds, scds, heparin subq CODE STATUS: DNR From home, lives alone, PT/OT to eval. Continued [facility] stay due to: multiple IV medications needed Discharge planning: home
[2017-12-02] MEDS ORDERED: PIPERACILL/TAZOBAC IV 3.375 GM in DEXTROSE 5% 100ML IV SCH (16:00)
[2017-12-02] MEDS ORDERED: PIPERACILL/TAZOBAC IV 3.375 GM in DEXTROSE 5% 100ML 100 ML IV SCH (18:00)
[2017-12-02] MEDS: PIPERACILL/TAZOBAC IV 3.375 GM in DEXTROSE 5% 100ML IV SCH (21:42)
[2017-12-03] VITALS (8 sets, daily range): BP systolic 100–113; BP diastolic 61–67; PULSE 80–109; TEMP 37–37.3; O2SAT 91–98
[2017-12-03] MEDS: LEVALBUTEROL 1.25MG/3ML NEB INH SCH ×4 (02:04→20:14)
[2017-12-03] MEDS: HEPARIN SOD 5000 UNIT/0.5 ML CARP SQ SCH ×3 (06:00→20:59)
[2017-12-03] MEDS: PIPERACILL/TAZOBAC IV 3.375 GM in DEXTROSE 5% 100ML IV SCH ×4 (06:08→21:36)
[2017-12-03] MEDS: GUAIFENESIN 600 MG TABCR PO SCH ×2 (07:58→21:00)
[2017-12-03] MEDS: MULTIVITAMIN TAB PO SCH (07:58)
[2017-12-03] MEDS: SERTRALINE HCL 50 MG TAB PO SCH (07:58)
[2017-12-03] MEDS: LOSARTAN POTASSIUM 50 MG TAB PO SCH (07:58)
[2017-12-03] MEDS: HYDROXYCHLOROQUINE SULFATE 200 MG TAB PO SCH ×2 (07:58→20:59)
[2017-12-03] MEDS: PANTOprazole SOD 40 MG TAB PO SCH (07:58)
[2017-12-03] MEDS: DEXTROMETHORPHAN POLYMR COMPLX 30 MG/5 ML UDP PO PRN ×2 (07:59→21:00)
[2017-12-03] MEDS: METOLAZONE 2.5 MG TAB PO SCH (08:00)
[2017-12-03] MEDS: CALCIUM 600MG + VIT D 400 IU TAB PO SCH (08:00)
[2017-12-03 08:19] LABS: BASO % 0.1 %; BASO ABS # 0.01 K/uL (0-0.2); EOS % 0.3 %; EOS ABS # 0.04 K/uL (0-0.5); HEMATOCRIT 25.8 % (37-47); HEMOGLOBIN 8.6 g/dL (12.0-16.0); IG# 0.05 K/uL (0.00-0.02); LYMPH % 4.5 %; LYMPH ABS # 0.57 K/uL (1.2-3.4); MEAN CELL VOLUME 96.6 fL (80-100); MEAN CORPUSCULAR HEMOGLOBIN 32.2 pg (25-34); MEAN CORPUSCULAR HGB CONC 33.3 g/dl (32-36); MEAN PLATELET VOLUME 8.9 fL (7.4-10.4); MONO % 9.7 %; MONO ABS # 1.23 K/uL (0.11-0.59); NEUT ABS # 10.82 K/uL (1.4-6.5); PLATELET COUNT 323 K/uL (130-400); RED CELL DISTRIBUTION WIDTH CV 12.9 % (11.5-14.5); RED CELL DISTRIBUTION WIDTH SD 45.3 fL (36.4-46.3); WHITE BLOOD COUNT 12.72 K/uL (4.8-10.8)
[2017-12-03 08:46] LABS: CALCIUM 8.6 mg/dl (8.5-10.1); POTASSIUM 3.5 mmol/L (3.5-5.1)
[2017-12-03] MEDS ORDERED: POTASSIUM CHLORIDE 10 MEQ TABCR PO ONE (12:00)
--- NOTE | 2017-12-03 12:01 | Hospitalist Progress Note ---
Hospitalist Progress Note Date of Service Dec 03, 2017. Subjective Pt evaluation today including: conversation w/ patient, physical exam, chart review, lab review, review of inpatient medication list Voiding: no voiding problems Ms. Arriaga does feel better today though she continues to have cough with yellow sputum. She has very little appetite. No further diarrhea ROS Constitutional: no chills, aches, sweats or fever Respiratory: no sob, or wheezing Cardiac: no chest pain, palpitations, edema, orthopnea or lightheadedness GI: no abdominal pain, nausea, vomiting, diarrhea or constipation : no dysuria or hesitancy Extremities: no joint pain or weakness Skin: no rash All other systems reviewed and negative Medications Medications Administered Medications (Trade) Dose Ordered Sig/Alon Route Start Time Stop Time Status Last Admin Dose Admin Albuterol/ Ipratropium (Duoneb) 3 ml NOW STAT INH 11/30/17 12:42 11/30/17 12:46 DC 11/30/17 13:02 3 ML Sodium Chloride 2,000 ml @ 999 mls/hr Q2H1M STAT IV 11/30/17 12:42 11/30/17 14:42 DC 11/30/17 12:42 999 MLS/HR Ondansetron HCl (Zofran Odt) 4 mg ONE ONCE PO 11/30/17 12:45 11/30/17 12:46 DC 11/30/17 13:01 4 MG Acetaminophen (Tylenol Tab) 1,000 mg NOW STAT PO 11/30/17 12:42 11/30/17 12:46 DC 11/30/17 13:02 1,000 MG Sodium Chloride 1,000 ml @ 999 mls/hr Q1H1M STAT IV 11/30/17 13:37 11/30/17 14:37 DC 11/30/17 13:52 999 MLS/HR Levofloxacin (Levaquin / D5W) 750 mg NOW STAT IV 11/30/17 13:51 11/30/17 13:52 DC 11/30/17 14:17 750 MG Acetaminophen (Tylenol Tab) 650 mg Q4H PRN PO 11/30/17 14:45 12/30/17 14:44 12/02/17 14:03 650 MG Guaifenesin (Mucinex Contr Rel Tab) 1,200 mg Q12 PO 11/30/17 21:00 12/30/17 20:59 12/03/17 07:58 1,200 MG Potassium Chloride/Sodium Chloride 1,000 ml @ 150 mls/hr Q6H40M IV 11/30/17 17:00 12/01/17 02:31 DC 12/01/17 01:21 150 MLS/HR Levalbuterol (Xopenex 1.25MG/ 3ML Neb) 1.25 mg Q6R INH 11/30/17 15:00 12/30/17 14:59 12/03/17 07:38 1.25 MG Hydroxychloroquine Sulfate (Plaquenil Tab) 200 mg BID PO 11/30/17 21:00 12/30/17 20:59 12/03/17 07:58 200 MG Losartan Potassium (coZAAR TAB) 100 mg DAILY PO 11/30/17 15:00 12/30/17 14:59 12/03/17 07:58 100 MG Metolazone (Zaroxolyn Tab) 2.5 mg DAILY PO 12/01/17 09:00 12/31/17 08:59 12/03/17 08:00 2.5 MG Multivitamins (Multivitamin Tab) 1 tab DAILY PO 12/01/17 09:00 12/31/17 08:59 12/03/17 07:58 1 TAB Prednisone (PredniSONE TAB) 5 mg DAILY PO 12/01/17 09:00 12/31/17 08:59 12/03/17 08:00 5 MG Sertraline HCl (Zoloft Tab) 25 mg DAILY PO 12/01/17 09:00 12/31/17 08:59 12/03/17 07:58 25 MG Calcium/Vitamin D (Caltrate Plus Tab) 1 tab DAILY PO 12/01/17 09:00 12/31/17 08:59 12/03/17 08:00 1 TAB Pantoprazole Sodium (Protonix Tab) 40 mg QAM PO 12/01/17 09:00 12/04/17 08:59 12/03/17 07:58 40 MG Diphenoxylate HCl/ Atropine (Lomotil Tab) 1 tab Q4H PRN PO 11/30/17 15:00 12/30/17 14:59 11/30/17 20:33 1 TAB Levofloxacin 750 mg/Prmx 150 ml @ 100 mls/hr Q48H IV 12/02/17 14:00 12/07/17 13:59 12/02/17 13:22 100 MLS/HR Dextromethorphan Polymer Complex (Delsym Susp) 30 mg Q8H PRN PO 12/01/17 02:15 12/31/17 02:14 12/03/17 07:59 30 MG Zolpidem Tartrate (Ambien Tab) 5 mg HS ONCE PO 12/01/17 21:00 12/01/17 21:01 DC 12/01/17 21:31 5 MG Piperacillin Sod/ Tazobactam Sod 3.375 gm/Dextrose 115 ml @ 230 mls/hr TODAY@1600 IV 12/02/17 16:00 12/02/17 23:59 DC 12/02/17 16:28 230 MLS/HR Piperacillin Sod/ Tazobactam Sod 3.375 gm/Dextrose 115 ml @ 28.75 mls/ hr Q8H IV 12/02/17 22:00 12/09/17 15:59 12/03/17 06:08 28.75 MLS/HR Objective Vital Signs Date Time Temp Pulse Resp B/P (MAP) Pulse Ox O2 Delivery O2 Flow Rate FiO2 12/03/17 08:17 37.1 91 18 107/64 (78) 91 12/03/17 08:00 Room Air 12/03/17 07:56 109 113/67 (82) 12/03/17 07:46 100 18 95 Room Air 12/03/17 02:04 81 16 97 Room Air 12/03/17 00:15 Room Air 12/02/17 22:50 37.2 83 20 120/67 (84) 95 Room Air 12/02/17 19:36 90 16 98 Room Air 12/02/17 16:00 Room Air 12/02/17 15:53 37.2 92 18 116/63 (80) 94 Room Air 12/02/17 13:27 38.9 Physical Exam Notes: General: no distress Eyes: normal inspection, PERLL Respiratory: chest non tender, clear to auscultation, normal breath sounds, no respiratory distress, no accessory muscle use Cardiac: regular rate and rhythm, no rub or gallop, no murmur, no edema, no jvd GI/: active bowel sounds, no abd pain or tenderness, soft, non distended Extremities: normal range of motion, normal strength, non tender Neuro/Psych: alert and oriented x 3, normal mood and affect Skin: normal color, dry Laboratory Results Last 24 Hours Test 12/03/17 07:47 White Blood Count 12.72 K/uL Red Blood Count 2.67 M/uL Hemoglobin 8.6 g/dL Hematocrit 25.8 % Mean Corpuscular Volume 96.6 fL Mean Corpuscular Hemoglobin 32.2 pg Mean Corpuscular Hemoglobin Concent 33.3 g/dl Platelet Count 323 K/uL Mean Platelet Volume 8.9 fL Neutrophils (%) (Auto) 85.0 % Lymphocytes (%) (Auto) 4.5 % Monocytes (%) (Auto) 9.7 % Eosinophils (%) (Auto) 0.3 % Basophils (%) (Auto) 0.1 % Neutrophils # (Auto) 10.82 K/uL Lymphocytes # (Auto) 0.57 K/uL Monocytes # (Auto) 1.23 K/uL Eosinophils # (Auto) 0.04 K/uL Basophils # (Auto) 0.01 K/uL RDW Standard Deviation 45.3 fL RDW Coefficient of Variation 12.9 % Immature Granulocyte % (Auto) 0.4 % Immature Granulocyte # (Auto) 0.05 K/uL Poikilocytosis PRESENT Sodium Level 133 mmol/L Potassium Level 3.5 mmol/L Chloride Level 101 mmol/L Carbon Dioxide Level 21 mmol/L Anion Gap 11.0 mmol/L Blood Urea Nitrogen 17 mg/dl Creatinine 1.00 mg/dl Est Creatinine Clear Calc Drug Dose 39.6 ml/min Estimated GFR () 64.7 Estimated GFR (Non- 55.8 BUN/Creatinine Ratio 16.7 Random Glucose 97 mg/dl Calcium Level 8.6 mg/dl Magnesium Level 1.1 mg/dl Assessment and Plan A 72-year-old female admitted on 11/30/2017, with pneumonia associated with a head cold with cough, runny nose, chest congestion, muscle aches and pains for 1 week, she also reported diarrhea 1 week. RLL Pneumonia in setting of recent URI, hx copd - T max yesterday 38.9 - zosyn added - continue zosyn and levaquin as patient has had no further fevers - initial BC no growth, second set pending LICHA on CKD stage II - creatinine 1.7 upon admission, today wnl - likely due to dehydration from poor PO intake and diarrhea - resolved Hypomagnesemia - replaced, repeat mag in am Diarrhea - resolved, C.diff pending but patient has not had further bowel movements HTN - continue Cozaar 100 mg daily, metalazone Lupus erythematosus - continue chronic prednisone 5 mg daily, Plaquenil 200 milligrams daily Depression, - continue sertraline 25 mg daily DVT ppx: Teds, scds, heparin subq CODE STATUS: DNR From home, lives alone, PT/OT evaluation reports likely can return home, suggests rolling walker.
[2017-12-03] MEDS: MAGNESIUM SULFATE 1GM / D5W 1 GM in PREMIXED IN D5W 100 ML IV SCH ×3 (12:44→14:40)
[2017-12-04 01:57] VITALS: PULSE 80; O2SAT 96
[2017-12-04] MEDS: LEVALBUTEROL 1.25MG/3ML NEB INH SCH ×3 (01:57→14:29)
[2017-12-04] MEDS: PIPERACILL/TAZOBAC IV 3.375 GM in DEXTROSE 5% 100ML IV SCH ×2 (05:58→13:20)
[2017-12-04] MEDS: HEPARIN SOD 5000 UNIT/0.5 ML CARP SQ SCH ×2 (05:58→13:19)
[2017-12-04 07:02] VITALS: PULSE 84; O2SAT 94
[2017-12-04 07:59] VITALS: BP 108/60; PULSE 98
[2017-12-04] MEDS: GUAIFENESIN 600 MG TABCR PO SCH (07:59)
[2017-12-04] MEDS: SERTRALINE HCL 50 MG TAB PO SCH (08:00)
[2017-12-04] MEDS: MULTIVITAMIN TAB PO SCH (08:00)
[2017-12-04] MEDS: LOSARTAN POTASSIUM 50 MG TAB PO SCH (08:00)
[2017-12-04] MEDS: CALCIUM 600MG + VIT D 400 IU TAB PO SCH (08:00)
[2017-12-04] MEDS: HYDROXYCHLOROQUINE SULFATE 200 MG TAB PO SCH (08:01)
[2017-12-04] MEDS: METOLAZONE 2.5 MG TAB PO SCH (08:02)
[2017-12-04 08:04] VITALS: BP 117/72; PULSE 75; TEMP 36.8; O2SAT 100
[2017-12-04] MEDS: DEXTROMETHORPHAN POLYMR COMPLX 30 MG/5 ML UDP PO PRN (10:23)
[2017-12-04] MEDS ORDERED: LEVOFLOXACIN 750 MG TAB PO SCH (11:00)
[2017-12-04] MEDS ORDERED: AMOX875T PO (11:59)
[2017-12-04] MEDS ORDERED: LVQ750 PO (11:59)
--- NOTE | 2017-12-04 12:02 | Discharge Instructions ---
Discharge Instructions Date of Service Dec 04, 2017. Admission Reason for Admission: Right Lower Lobe Pneumonia, Vomiting And Diarrhea Discharge Discharge Diagnosis / Problem: Right lower lobe pneumonia Discharge Goals Goal(s): Improve function, Improve disease control Activity Recommendations Activity Limitations: resume your previous activity . Instructions / Follow-Up Instructions / Follow-Up Medications: - LEVAQUIN: one more dose due on morning, 12/06 - AUGMENTIN: take twice a day, next dose due tonight Right lower lobe pneumonia: responding well to combination of Levaquin and Zosyn IV while hospitalized, no fevers for 48 hours, vitals stable, labs stable need three more days of treatment please follow up with PCP in one week for hospital follow up FOLLOW UP - Dr. Almazan in one week, call for appointment Current Hospital Diet Patient's current hospital diet: Regular Diet Discharge Diet Recommended Diet: Regular Diet Pending Studies Studies pending at discharge: no Medical Emergencies . Who to Call and When: Medical Emergencies: If at any time you feel your situation is an emergency, please call 911 immediately. . Non-Emergent Contact Non-Emergency issues call your: Primary Care Provider Call Non-Emergent contact if: you have a fever, you have any medication questions . . "Provider Documentation" section prepared by Sulaiman Saba. . VTE Core Measure Inpt VTE Proph given/why not?: Unfractionated heparin THERESE, Tam Amaya, [facility] 's [place] Drug Monitoring Program Search Results: no issues identified
[2017-12-04] MEDS ORDERED: MAGNESIUM OXIDE 400 MG TAB PO ONE (12:30)
[2017-12-04 13:23] VITALS: BP 117/72; PULSE 75; TEMP 36.8; O2SAT 100
--- NOTE | 2017-12-05 07:59 | Discharge Summary ---
Discharge Summary Date of Service Dec 05, 2017. Discharge Summary Admission Date: Nov 30, 2017 at 14:43 Discharge Date: Dec 04, 2017 Discharge Disposition: Home Principal Diagnosis: Right lower lobe pneumonia Problems/Secondary Diagnoses: Acute kidney injury Hypomagnesemia Immunizations: Have You Had Influenza Vaccine: No Influenza Vaccine Date: Sep 10, 2008 History of Tetanus Vaccine?: Yes Tetanus Immunization Date: Mar 11, 2008 History of Pneumococcal: Yes Pneumococcal Date: Mar 11, 2008 History of Hepatitis B Vaccine: Unknown Hepatitis Immunization Date: Mar 11, 2007 Procedures: none Consultations: none Medication Reconciliation New Medications: Amoxicillin & Pot Clavulanate (Augmentin 875-125 mg) 1 Tab Tab 1 TAB PO BID for 3 Days, #7 TAB next dose due tonight Levofloxacin (Levofloxacin) 750 Mg Tab 750 MG PO Q2D@1100, #1 TAB 0 Refills take on 12/06 Continued Medications: Alendronate Sodium (Fosamax) 70 Mg Tab 70 MG PO WK, TAB takes on sundays Calcium Carbonate-Cholecalcife (Caltrate 600+D) 1 Tab Tab 1 TAB PO DAILY Hydroxychloroquine Sulfate (Plaquenil) 200 Mg Tab 200 MG PO BID, TAB Losartan Potassium (Cozaar) 100 Mg Tab 100 MG PO DAILY, TAB Metolazone (Zaroxolyn) 2.5 Mg Tab 2.5 MG PO DAILY Multivitamin (Multivitamin) Tab 1 TAB PO DAILY, TAB Mycophenolate Mofetil (Mycophenolate Mofetil) 500 Mg Tab 500 MG PO BID Omeprazole (Prilosec) 20 Mg Capcr 20 MG PO BID, 0 Refills Prednisone (Prednisone) 5 Mg Tab 5 MG PO DAILY Sertraline (Zoloft) 25 Mg Tab 25 MG PO DAILY, 0 Refills Discharge Exam Patient doing well, breathing stable, mild cough, no fever for 48 hours. Ambulating independently, eating well. Review of Systems: Constitutional: No fever, No chills, No sweats, No weight loss, No weakness , No fatigue, No problem reported Eyes: No worsening of vision, No eye pain, No redness, No discharge, No diplopia, No problem reported ENT: No hearing loss, No unusual epistaxis, No nasal symptoms, No sore throat, No tinnitus, No dental problems, No trouble swallowing, No problem reported Respiratory: + cough (non-productive), No sputum, No wheezing, No shortness of breath, No dyspnea on exertion, No dyspnea at rest, No hemoptysis, No problem reported Cardiovascular: No chest pain, No orthopnea, No PND, No edema, No claudication, No palpitations, No problem reported Abdomen: No pain, No nausea, No vomiting, No diarrhea, No constipation, No GI bleeding, No problem reported Musculoskeletal: + joint pain (chronic), No muscle pain, No swelling, No calf pain, No problem reported Genitourinary - Female: No dysuria, No urinary frequency, No urinary urgency , No urinary incontinence, No urinary retention, No hematuria Neurologic: No memory loss, No paralysis, No weakness, No numbness/tingling , No vertigo, No balance problems, No problem reported Psychiatric: No depression symptoms, No anhedonism, No anxiety, No insomnia , No substance abuse, No problem reported Endocrine: No fatigue, No excessive thirst, No excessive urination, No problem reported Hematologic / Lymphatic: No abnormal bleeding/bruising, No clotting problems , No swollen lymph nodes, No night sweats, No problem reported Integumentary: No rash, No itch, No new/changing skin lesions, No color change, No bleeding, No problem reported Physical Exam: General Appearance: WD/WN, no apparent distress Eyes: normal inspection, EOMI, sclerae normal ENT: normal ENT inspection, hearing grossly normal, pharynx normal Neck: supple, no adenopathy, no JVD, trachea midline Respiratory/Chest: chest non-tender, lungs clear, normal breath sounds, no respiratory distress, no accessory muscle use Cardiovascular: regular rate, rhythm, no edema, no gallop, no JVD, no murmur , normal peripheral pulses Abdomen / GI: normal bowel sounds, non tender, soft, no organomegaly Extremities: normal inspection, no calf tenderness, normal capillary refill , no pedal edema, normal range of motion, pelvis stable Neurologic/Psychiatric: director client II-XII nml as tested, no motor/sensory deficits , alert, normal mood/affect, normal reflexes, oriented x 3 Skin: normal color, warm/dry, no rash Hospital Course A 72-year-old female admitted on 11/30/2017, with pneumonia associated with a head cold with cough, runny nose, chest congestion, muscle aches and pains for 1 week, she also reported diarrhea 1 week. RLL Pneumonia in setting of recent URI, hx copd - initially treated with just Levaquin, had fever of 38.9 on 12/02 in the afternoon so Zosyn added - no fevers for 48 hours on dual antibiotics - will d/c on Levaquin 750mg q48 hours and Augmentin BID for 3 more days - no growth on blood cultures - follow up with PCP LICHA on CKD stage II - creatinine 1.7 upon admission, resolved with IV fluids, so it was likely prerenal in setting of infection Hypomagnesemia - resolved Diarrhea - resolved HTN - continue Cozaar 100 mg daily, metalazone Lupus erythematosus - continue chronic prednisone 5 mg daily, Plaquenil 200 milligrams daily Depression, - continue sertraline 25 mg daily DVT ppx: Teds, scds, heparin subq CODE STATUS: DNR From home, lives alone, PT/OT evaluation reports likely can return home, suggests rolling walker. d/c to home and follow up PCP Total Time Spent: Greater than 30 minutes This includes examination of the patient, discharge planning, medication reconciliation, and communication with other providers. Discharge Instructions Please refer to the electronic Patient Visit Report (Discharge Instructions) for additional information. Follow-Up Dr. Almazan in one week Additional Copies To Carson Almazan M.D.
--- NOTE | 2017-12-06 11:44 | EDITING REQUIRED CODING QUERY ---
SEPSIS To promote full compliance with coding requirements relating to patient care, physician participation is requested in all cases of computer language coder uncertainty. Please assist us with the question(s) below: In responding to this query, please exercise your independent professional judgment. The fact that a question is asked does not imply that any particular answer is desired or expected. We appreciate your clarification on this issue. Coding Question: Possible Sepsis was documented in the H&P and 12/01-12/02 PN; please clarify below to the best of your knowledge. Thank you for your help! (x) Sepsis, present on admission () Sepsis, not present on admission () Sepsis, ruled out () Other, patient has:
== END 2017-12-04 15:30 | disposition home or self-care (01) | DRG 871 ==
LOC: C.EDB 11:29 → C.MS2W 14:43 → ENRESERV 15:41 → C.MS2W 12-03 23:04
PROVIDERS: ADMIT Internal Medicine; ATTEND Internal Medicine
DX: A41.9 Sepsis, unspecified organism (principal); J18.9 Pneumonia, unspecified organism; N17.9 Acute kidney failure, unspecified; J44.9 Chronic obstructive pulmonary disease, unspecified; I12.9 Hypertensive chronic kidney disease with stage 1 through stage 4 chronic kidney disease, or unspecified chronic kidney disease; N18.2 Chronic kidney disease, stage 2 (mild); L93.0 Discoid lupus erythematosus; F32.9 Major depressive disorder, single episode, unspecified; R19.7 Diarrhea, unspecified; E83.42 Hypomagnesemia; Z66 Do not resuscitate; Z79.52 Long term (current) use of systemic steroids; Z79.899 Other long term (current) drug therapy; Z87.891 Personal history of nicotine dependence; Z88.2 Allergy status to sulfonamides

== ENCOUNTER → 2018-03-08 | Outpatient (CLI) | payer OTHER ==
[~2018-03-08] MED LIST changes: -ACET-1138 PEG; +CALC-354 PO; -CALCTAB5 PO; -CHOLTAB3 PO; -CLL250 PO; -CRAN500C2 PO; -CZR50 PO; -HYDR0.5T PO; +HYDR200T5 PO; +LOSA1TAB38 PO; +LVQ750 PO; +MULT-506 PO; +MYCO500T5 PO; -OMEG10007 PO
[2018-03-08 09:37] LABS: BASO % 0.8 %; BASO ABS # 0.04 K/uL (0-0.2); EOS ABS # 0.05 K/uL (0-0.5); HEMATOCRIT 33.6 % (37-47); HEMOGLOBIN 10.9 g/dL (12.0-16.0); IG# 0.02 K/uL (0.00-0.02); LYMPH % 20.2 %; LYMPH ABS # 0.97 K/uL (1.2-3.4); MEAN CELL VOLUME 99.4 fL (80-100); MEAN CORPUSCULAR HEMOGLOBIN 32.2 pg (25-34); MEAN CORPUSCULAR HGB CONC 32.4 g/dl (32-36); MEAN PLATELET VOLUME 9.5 fL (7.4-10.4); MONO ABS # 0.72 K/uL (0.11-0.59); NEUT % 62.6 %; PLATELET COUNT 246 K/uL (130-400); RED CELL DISTRIBUTION WIDTH CV 12.9 % (11.5-14.5); RED CELL DISTRIBUTION WIDTH SD 46.8 fL (36.4-46.3)
[2018-03-08 09:49] LABS: BLOOD UREA NITROGEN 34 mg/dl (7-18); CALCIUM 8.6 mg/dl (8.5-10.1); CARBON DIOXIDE 28 mmol/L (21-32); CHOLESTEROL 233 mg/dl (0-200); CREATININE 1.15 mg/dl (0.60-1.20); GLUCOSE 82 mg/dl (70-99); POTASSIUM 3.6 mmol/L (3.5-5.1); SODIUM 134 mmol/L (136-145)
[2018-03-08 09:51] LABS: HEMOGLOBIN A1C 5.5 % (4.5-5.6)
[2018-03-08 09:59] LABS: LDL CHOLESTEROL CALCULATED 125 mg/dl
== END | disposition home or self-care (01) ==
LOC: C.LAB1850 08:19
PROVIDERS: ATTEND Internal Medicine
DX: I10 Essential (primary) hypertension (principal)